=== PATIENT | male | born 1980 | race Caucasian/White ===

== ENCOUNTER 2016-08-17 18:21 | Emergency (ER) | payer OTHER ==
[~2016-08-17] VITALS: Ht 182.9 cm; Wt 138.2 kg
[~2016-08-17 18:21] MED LIST: DEXAMETHASONE2 MG PO; TYLENOL EXTRA500 MG PO
[2016-08-17 19:59] LABS: HEMATOCRIT 44.9 % (38.0-50.0); MCH 29.8 PG (29.0-34.0); MCHC 35.9 G/DL (30.0-36.0); MCV 83.1 FL (86-99); MEAN PLAT.VOLUME 9.5 uM^3 (9.0-12.4); PLATELET COUNT 269 K/uL (156-360); RBC DIS.WIDTH-CV 12.6 % (11.8-14.6); WHITE BLOOD COUNT 9.1 K/uL (4.1-10.2)
[2016-08-17 20:12] LABS: CHLORIDE 106 mEq/L (99-109); POTASSIUM 4.1 mEq/L (3.7-5.4); SODIUM 137 mEq/L (136-147)
[2016-08-17 20:14] LABS: GLUCOSE 105 mg/dL (70-99)
[2016-08-17 20:15] LABS: ANION GAP 10 MEQ/L (2-14)
[2016-08-17 20:17] LABS: GFR ESTIMATE (CALCULATED) > 59 mL/min/
[2016-08-17 20:18] LABS: UREA NITROGEN (BUN) 11 mg/dL (9-23)
[2016-08-17 20:22] LABS: TROP-I INTERPRETATION NEGATIVE; TROPONIN-I < 0.01 ng/mL (0.0-0.30)
[2016-08-17] MEDS ORDERED: OMEPRAZOLE40 M1 PO (21:30)
[2016-08-17 22:12] LABS: TROP-I INTERPRETATION NEGATIVE; TROPONIN-I < 0.01 ng/mL (0.0-0.30)
[2016-08-17 22:37] VITALS: BP 146/68
== END 2016-08-17 22:38 | disposition home or self-care (01) ==
LOC: EME 18:21
PROVIDERS: Physician Assistant
DX: K21.9 Gastro-esophageal reflux disease without esophagitis (principal)
CPT/HCPCS: 71020; 80048; 84484; 85027; 93005; 99281; 99284